=== PATIENT | female | born 1965 | race African-American/Black ===

== ENCOUNTER 2018-10-06 08:04 | Emergency (ER) | payer OTHER ==
[~2018-10-06] VITALS: Ht 180.3 cm; Wt 106.6 kg
[2018-10-06 08:11] VITALS: Ht 180.3 cm; Wt 106.6 kg
[2018-10-06 09:01] LABS: BASOPHIL % 0.9 % (0-2); PLATELET COUNT 280 x10^3mcL (130-400)
[2018-10-06 16:17] VITALS: BP 124/68
== END 2018-10-06 16:17 | disposition home or self-care (01) ==
LOC: ED 08:04
PROVIDERS: Emergency Medicine
DX: R04.0 Epistaxis (principal); I10 Essential (primary) hypertension; Z86.73 Personal history of transient ischemic attack (TIA), and cerebral infarction without residual deficits; Z88.6 Allergy status to analgesic agent
CPT/HCPCS: 36415